=== PATIENT | female | born 1970 | race Caucasian/White ===

== ENCOUNTER → 2020-03-21 | Outpatient (CLI) | payer BC | LOC: LAB 13:27 | DX: D89.89 Other specified disorders involving the immune mechanism, not elsewhere classified (principal); M25.50 Pain in unspecified joint; R53.83 Other fatigue | CPT/HCPCS: 36415 ==

== ENCOUNTER → 2020-03-31 | Outpatient (CLI) | payer BC | LOC: RAD 11:27 | DX: M05.60 Rheumatoid arthritis of unspecified site with involvement of other organs and systems (principal) | CPT/HCPCS: 73130; 73630 ==